=== PATIENT | female | born 1955 | race Caucasian/White ===

== ENCOUNTER 2024-05-19 17:20 | Inpatient (IN) | payer MEDICARE, OTHER, MEDICAID ==
[~2024-05-19] VITALS: Ht 167.6 cm; Wt 92.3 kg
[2024-05-19] MEDS: ACETAMINOPHEN 325MG TABLET PO STA (17:42)
[2024-05-19] MEDS: SODIUM CHLORIDE 0.9% 1,000 ML IV ONE (17:45)
[2024-05-19 18:37] LABS: BASOPHILS % 0.2 % (0.0-2.0); EOSINOPHILS % 4.5 % (0.0-5.0); HEMOGLOBIN. 10.6 g/dL (12.0-16.0); LYMPHOCYTES % 28.9 % (20.0-50.0); MEAN CORPUSCULAR HEMOGLOBIN 30.4 pg (28.0-32.0); MEAN CORPUSCULAR HGB CONC 33.1 g/dL (31.0-37.0); MEAN CORPUSCULAR VOLUME 91.8 fL (81.0-99.0); MEAN PLATELET VOLUME 8.9 fl (7.4-10.4); MONOCYTES % 7.7 % (2.0-8.0); NEUTROPHILS % 58.7 % (40.0-76.0); PLATELET 231 x1000/uL (130-400); RED BLOOD CELL COUNT 3.49 mill/uL (4.2-5.4); RED CELL DISTRIBUTION WIDTH 14.5 % (11.6-14.6); WHITE BLOOD COUNT 7.3 x1000/uL (4.5-11.0)
[2024-05-19 18:42] LABS: CHLORIDE 111 mEq/L (98-107); POTASSIUM 4.3 mEq/L (3.5-5.1); SODIUM 144 mEq/L (136-145)
[2024-05-19 18:43] LABS: CALCIUM 8.5 mg/dL (8.7-10.4); CARBON DIOXIDE 28 mEq/L (21-32)
[2024-05-19 18:47] LABS: INR 0.9; PROTHROMBIN TIME 10.6 sec (9.6-11.0)
[2024-05-19 18:48] LABS: CREATININE 2.3 mg/dL (0.6-1.0); GLUCOSE 91 mg/dL (70-105); UREA NITROGEN BLOOD 31 mg/dL (9-23)
[2024-05-19 18:51] LABS: TROPONIN I HIGH SENSITIVITY 46 ng/L (3.0-34)
[2024-05-19] MEDS ORDERED: HYDRALAZINE 20MG/ML VIAL IV PRN (20:45)
[2024-05-19] MEDS ORDERED: DOCUSATE SODIUM 100MG CAPSULE PO PRN (21:15)
[2024-05-19] MEDS ORDERED: NALOXONE HCL 0.4MG/ML VIAL IV PRN (21:15)
[2024-05-19] MEDS ORDERED: GUAIFENESIN 200MG/10ML SUGAR FREE UDC PO PRN (21:15)
[2024-05-19] MEDS ORDERED: MAGNESIUM/ALUMINUM HYDROXIDE/SIMETHICONE 30ML UDC PO PRN (21:15)
[2024-05-19] MEDS: SODIUM CHLORIDE 0.45% 1,000 ML IV SCH (21:45)
[2024-05-20] VITALS: BP 162/77; PULSE 60; RESP 18; TEMP 36.6696; O2SAT 98
[2024-05-20 01:16] VITALS: BP 162/77; PULSE 84; RESP 18; TEMP 36.696
[2024-05-20 01:17] LABS: CREATINE KINASE MB FRACTION 1.1 ng/mL (0.5-3.6)
[2024-05-20 04:00] VITALS: BP 154/80; PULSE 69; TEMP 36.114; O2SAT 95
[2024-05-20 06:13] LABS: CHLORIDE 115 mEq/L (98-107); POTASSIUM 4.4 mEq/L (3.5-5.1); SODIUM 145 mEq/L (136-145)
[2024-05-20 06:14] LABS: CALCIUM 8.1 mg/dL (8.7-10.4); CARBON DIOXIDE 25 mEq/L (21-32)
[2024-05-20 06:18] LABS: CREATINE KINASE MB FRACTION 0.5 ng/mL (0.5-3.6); IRON 43 ug/dL (50-170)
[2024-05-20 06:19] LABS: CREATININE 2.2 mg/dL (0.6-1.0); GLUCOSE 114 mg/dL (70-105); UREA NITROGEN BLOOD 29 mg/dL (9-23)
[2024-05-20 06:21] LABS: CREATINE KINASE 51 IU/L (34-145); PHOSPHORUS 3.8 mg/dL (2.5-4.9); TOTAL IRON BINDING CAPACITY 216 ug/dl (250-425)
[2024-05-20 06:23] LABS: FOLIC ACID (FOLATE) SERUM 10.64 ng/mL (>5.38); T4 FREE 0.83 ng/dL (0.89-1.76); VITAMIN B12 SERUM 401 pg/mL (211-911)
[2024-05-20 06:24] LABS: FERRITIN 33 ng/mL (10-291); THYROID STIMULATING HORMONE 1.55 uIU/mL (0.55-4.78)
[2024-05-20 06:47] LABS: BASOPHILS % 1.1 % (0.0-2.0); EOSINOPHILS % 5.5 % (0.0-5.0); HEMATOCRIT. 31.5 % (36.0-48.0); LYMPHOCYTES % 26.7 % (20.0-50.0); MEAN CORPUSCULAR HEMOGLOBIN 29.1 pg (28.0-32.0); MEAN CORPUSCULAR HGB CONC 31.7 g/dL (31.0-37.0); MEAN CORPUSCULAR VOLUME 91.7 fL (81.0-99.0); MONOCYTES % 6.2 % (2.0-8.0); NEUTROPHILS % 60.5 % (40.0-76.0); PLATELET 209 x1000/uL (130-400); RED BLOOD CELL COUNT 3.44 mill/uL (4.2-5.4); RED CELL DISTRIBUTION WIDTH 14.1 % (11.6-14.6); WHITE BLOOD COUNT 6.1 x1000/uL (4.5-11.0)
[2024-05-20 07:01] LABS: TROPONIN I HIGH SENSITIVITY 47 ng/L (3.0-34)
[2024-05-20 08:00] VITALS: BP 160/80; PULSE 70; RESP 18; TEMP 36.28068; O2SAT 97
[2024-05-20] MEDS: LEVETIRACETAM 500MG TABLET PO SCH (08:47)
[2024-05-20] MEDS: ENOXAPARIN 30MG/0.3ML SYR SUBCUT SCH (08:48)
[2024-05-20] MEDS: PANTOPRAZOLE 40MG DR TABLET PO SCH (08:48)
[2024-05-20] MEDS: HYDROCODONE/ACETAMINOPHEN 5/325MG TABLET PO PRN (09:50)
[2024-05-20] MEDS ORDERED: LIDOCAINE HCL 1% 10 MG/ML 10ML VIAL ONE (12:01)
[2024-05-20 16:00] VITALS: BP 138/70; PULSE 61; RESP 18; TEMP 36.44736; O2SAT 97
[2024-05-20] MEDS: ENOXAPARIN 60MG/0.6ML SYR SUBCUT NR (16:12)
[2024-05-20] MEDS: ASPIRIN 81MG TABLET PO SCH (16:14)
[2024-05-20 18:32] LABS: CREATINE KINASE MB FRACTION < 0.5 ng/mL (0.5-3.6)
[2024-05-20 18:33] LABS: CREATINE KINASE 45 IU/L (34-145)
[2024-05-20 18:58] LABS: TROPONIN I HIGH SENSITIVITY 49 ng/L (3.0-34)
[2024-05-20 20:59] VITALS: BP 143/74; PULSE 59; RESP 18; TEMP 36.61404; O2SAT 98
[2024-05-20] MEDS: ATORVASTATIN CALCIUM 40MG TABLET PO SCH (21:06)
[2024-05-21] VITALS: BP 140/80; RESP 19; TEMP 36.6696; O2SAT 98
[2024-05-21 03:40] VITALS: BP 146/88; PULSE 60; RESP 18; TEMP 37.00296; O2SAT 95
[2024-05-21 06:46] LABS: POTASSIUM 4.1 mEq/L (3.5-5.1)
[2024-05-21 06:48] LABS: CALCIUM 8.4 mg/dL (8.7-10.4)
[2024-05-21 06:52] LABS: CREATININE 2.1 mg/dL (0.6-1.0)
[2024-05-21] MEDS: PANTOPRAZOLE 40MG DR TABLET PO SCH (06:58)
[2024-05-21 07:16] LABS: HEMATOCRIT 30.7 % (36.0-48.0); HEMOGLOBIN 9.9 g/dL (12.0-16.0); MEAN CORPUSCULAR HEMOGLOBIN 29.6 pg (28.0-32.0); MEAN CORPUSCULAR HGB CONC 32.3 g/dL (31.0-37.0); MEAN CORPUSCULAR VOLUME 91.8 fL (81.0-99.0); PLATELET 197 x1000/uL (130-400); RED BLOOD CELL COUNT 3.34 mill/uL (4.2-5.4); RED CELL DISTRIBUTION WIDTH 14.5 % (11.6-14.6); WHITE BLOOD COUNT 6.1 x1000/uL (4.5-11.0)
[2024-05-21 08:00] VITALS: BP 176/79; PULSE 52; RESP 18; TEMP 35.8362; O2SAT 97
[2024-05-21] MEDS: CLONIDINE 0.2MG TABLET PO PRN (08:23)
[2024-05-21] MEDS: ONDANSETRON HCL 4MG/2ML INJ IV PRN (08:24)
[2024-05-21] MEDS: ENOXAPARIN 80MG/0.8ML SYR SUBCUT SCH (08:24)
[2024-05-21] MEDS: METOCLOPRAMIDE HCL 10MG/2ML VIAL IV NR (10:43)
[2024-05-21 12:00] VITALS: BP 141/68; PULSE 45; RESP 18; TEMP 36.05844; O2SAT 97
[2024-05-21 13:05] LABS: TROPONIN I HIGH SENSITIVITY 48 ng/L (3.0-34)
[2024-05-21 16:00] VITALS: BP 140/62; PULSE 48; RESP 20; TEMP 36.44736; O2SAT 98
[2024-05-21 20:00] VITALS: BP 149/79; PULSE 59; RESP 19; TEMP 36.50292; O2SAT 97
[2024-05-22] VITALS: BP 158/74; PULSE 67; RESP 19; TEMP 36.61404; O2SAT 100
[2024-05-22 04:00] VITALS: BP 158/74; PULSE 65; RESP 19; TEMP 36.3918; O2SAT 98
[2024-05-22] MEDS: PANTOPRAZOLE 40MG DR TABLET PO SCH (06:31)
[2024-05-22] MEDS ORDERED: OMEPRAZOLE 20MG CAPSULE EXTENDED RELEASE PO SCH (07:10)
[2024-05-22 07:45] LABS: CALCIUM 9.2 mg/dL (8.7-10.4); CARBON DIOXIDE 26 mEq/L (21-32); CHLORIDE 111 mEq/L (98-107); POTASSIUM 4.2 mEq/L (3.5-5.1); SODIUM 143 mEq/L (136-145)
[2024-05-22 07:51] LABS: CREATININE 1.9 mg/dL (0.6-1.0); GLUCOSE 91 mg/dL (70-105)
[2024-05-22 07:52] LABS: UREA NITROGEN BLOOD 26 mg/dL (9-23)
[2024-05-22 07:53] LABS: PHOSPHORUS 3.8 mg/dL (2.5-4.9)
[2024-05-22 08:00] VITALS: BP 120/77; PULSE 68; RESP 19; TEMP 36.55848; O2SAT 99
[2024-05-22] MEDS: METOCLOPRAMIDE HCL 10MG/2ML VIAL IV SCH (08:30)
[2024-05-22 09:00] LABS: BASOPHILS % 1.3 % (0.0-2.0); EOSINOPHILS % 4.2 % (0.0-5.0); HEMATOCRIT. 33.9 % (36.0-48.0); HEMOGLOBIN. 11.1 g/dL (12.0-16.0); LYMPHOCYTES % 26.1 % (20.0-50.0); MEAN CORPUSCULAR HEMOGLOBIN 29.9 pg (28.0-32.0); MEAN CORPUSCULAR HGB CONC 32.8 g/dL (31.0-37.0); MONOCYTES % 6.1 % (2.0-8.0); NEUTROPHILS % 62.3 % (40.0-76.0); PLATELET 216 x1000/uL (130-400); RED BLOOD CELL COUNT 3.72 mill/uL (4.2-5.4); WHITE BLOOD COUNT 6.3 x1000/uL (4.5-11.0)
[2024-05-22 10:06] LABS: TROPONIN I HIGH SENSITIVITY 56 ng/L (3.0-34)
[2024-05-22 12:00] VITALS: BP 96/78; PULSE 68; RESP 19; TEMP 36.55848; O2SAT 99
[2024-05-22 16:00] VITALS: BP 101/79; PULSE 88; RESP 18; TEMP 36.22512; O2SAT 98
[2024-05-22] MEDS: LEVOTHYROXINE SODIUM 75MCG TABLET PO SCH (16:00)
[2024-05-22] MEDS: GABAPENTIN 300MG CAPSULE PO SCH (17:50)
[2024-05-22] MEDS: CITALOPRAM HYDROBROMIDE 10MG TABLET PO SCH (17:51)
[2024-05-22 18:47] LABS: CLARITY URINE CLOUDY (CLEAR); COLOR URINE YELLOW (YELLOW); GLUCOSE URINE NEGATIVE (NEGATIVE); KETONES URINE NEGATIVE (NEGATIVE); LEUKOCYTE ESTERASE URINE 1+ (NEGATIVE); NITRITE URINE POSITIVE (NEGATIVE); OCCULT BLOOD URINE TRACE (NEGATIVE); PH URINE 7.5 (4.5-8.0); PROTEIN URINE 3+ (NEGATIVE); UROBILINOGEN URINE 0.2 E.U./dL (0.2-1.0)
[2024-05-22 19:28] LABS: BACTERIA URINE 4+; RBC URINE 0-2 /hpf (0-2); SQUAMOUS EPITHELIAL CELL URINE 1+ /lpf (RARE/1+)
[2024-05-22 20:00] VITALS: BP 162/72; PULSE 89; RESP 18; TEMP 36.33624; O2SAT 97
[2024-05-22] MEDS: ONDANSETRON HCL 4MG TABLET PO PRN (20:55)
[2024-05-23] VITALS: BP 125/54; PULSE 65; RESP 28; TEMP 36.3918; O2SAT 95
[2024-05-23 04:00] VITALS: BP 147/64; PULSE 61; RESP 19; TEMP 36.3918; O2SAT 98
[2024-05-23 08:00] VITALS: BP 130/92; PULSE 60; RESP 18; TEMP 36.61404; O2SAT 97
[2024-05-23] MEDS: CEFTRIAXONE 1GM/50ML 50 ML IV NR (09:14)
[2024-05-23 09:30] LABS: CHLORIDE 111 mEq/L (98-107); POTASSIUM 4.4 mEq/L (3.5-5.1); SODIUM 142 mEq/L (136-145)
[2024-05-23 09:31] LABS: CALCIUM 8.5 mg/dL (8.7-10.4); CARBON DIOXIDE 26 mEq/L (21-32)
[2024-05-23 09:36] LABS: GLUCOSE 95 mg/dL (70-105); UREA NITROGEN BLOOD 26 mg/dL (9-23)
[2024-05-23 09:38] LABS: PHOSPHORUS 4.3 mg/dL (2.5-4.9)
[2024-05-23 10:20] LABS: BASOPHILS % 1.4 % (0.0-2.0); EOSINOPHILS % 4.6 % (0.0-5.0); HEMATOCRIT. 33.6 % (36.0-48.0); HEMOGLOBIN. 10.9 g/dL (12.0-16.0); LYMPHOCYTES % 30.6 % (20.0-50.0); MEAN CORPUSCULAR HEMOGLOBIN 29.4 pg (28.0-32.0); MEAN CORPUSCULAR HGB CONC 32.3 g/dL (31.0-37.0); MEAN CORPUSCULAR VOLUME 91.3 fL (81.0-99.0); MEAN PLATELET VOLUME 9.7 fl (7.4-10.4); MONOCYTES % 9.4 % (2.0-8.0); PLATELET 225 x1000/uL (130-400); RED BLOOD CELL COUNT 3.69 mill/uL (4.2-5.4); RED CELL DISTRIBUTION WIDTH 14.5 % (11.6-14.6); WHITE BLOOD COUNT 5.2 x1000/uL (4.5-11.0)
[2024-05-23 12:00] VITALS: BP 121/52; PULSE 69; RESP 18; TEMP 36.72516; O2SAT 99
[2024-05-23] MEDS: METOPROLOL TARTRATE 25MG TABLET PO SCH ×2 (14:18→21:07)
[2024-05-23] MEDS ORDERED: APIX5TAB PO (15:31)
[2024-05-23] MEDS ORDERED: LIP40 PO (15:31)
[2024-05-23] MEDS ORDERED: CITA10TA16 PO (15:31)
[2024-05-23] MEDS ORDERED: METO25TA6 PO (15:31)
[2024-05-23] MEDS ORDERED: ASPI-1160 PO (15:31)
[2024-05-23] MEDS ORDERED: LOSA25TA26 MT (15:31)
[2024-05-23] MEDS ORDERED: GABA-532 PO (15:31)
[2024-05-23] MEDS ORDERED: AMOX1TAB15 MT (15:31)
[2024-05-23] MEDS ORDERED: KEPP500 PO (15:31)
[2024-05-23] MEDS ORDERED: LEVO75TA7 PO (15:31)
[2024-05-23] MEDS ORDERED: DOCU-150 PO (15:31)
[2024-05-23] MEDS ORDERED: PANT40TA51 PO (15:31)
[2024-05-23 16:00] VITALS: BP 155/70; PULSE 81; RESP 18; TEMP 36.50292; O2SAT 98
[2024-05-23 20:03] VITALS: BP 119/65; PULSE 72; RESP 18; TEMP 36.3918; O2SAT 96
[2024-05-23] MEDS: ACETAMINOPHEN 325MG TABLET PO PRN (21:37)
[2024-05-24] VITALS: BP 125/53; PULSE 60; RESP 18; TEMP 35.61396; O2SAT 96
[2024-05-24 04:05] VITALS: BP 124/73; PULSE 58; RESP 18; TEMP 36.3918; O2SAT 99
[2024-05-24 07:23] LABS: CALCIUM 7.9 mg/dL (8.7-10.4); CARBON DIOXIDE 27 mEq/L (21-32); CHLORIDE 108 mEq/L (98-107); POTASSIUM 4.3 mEq/L (3.5-5.1); SODIUM 139 mEq/L (136-145)
[2024-05-24 07:28] LABS: CREATININE 2.6 mg/dL (0.6-1.0); GLUCOSE 86 mg/dL (70-105)
[2024-05-24 07:29] LABS: UREA NITROGEN BLOOD 32 mg/dL (9-23)
[2024-05-24 07:32] LABS: BASOPHILS % 0.6 % (0.0-2.0); EOSINOPHILS % 3.7 % (0.0-5.0); HEMOGLOBIN. 10.8 g/dL (12.0-16.0); LYMPHOCYTES % 11.9 % (20.0-50.0); MEAN CORPUSCULAR HEMOGLOBIN 29.1 pg (28.0-32.0); MEAN CORPUSCULAR HGB CONC 31.8 g/dL (31.0-37.0); MEAN CORPUSCULAR VOLUME 91.5 fL (81.0-99.0); MEAN PLATELET VOLUME 9.6 fl (7.4-10.4); MONOCYTES % 6.5 % (2.0-8.0); NEUTROPHILS % 77.3 % (40.0-76.0); PLATELET 204 x1000/uL (130-400); RED BLOOD CELL COUNT 3.71 mill/uL (4.2-5.4); RED CELL DISTRIBUTION WIDTH 14.7 % (11.6-14.6); WHITE BLOOD COUNT 7.4 x1000/uL (4.5-11.0)
[2024-05-24 08:00] VITALS: BP 129/64; PULSE 58; RESP 18; TEMP 36.33624; O2SAT 95
[2024-05-24 12:00] VITALS: BP 136/55; PULSE 56; RESP 16; TEMP 36.72516; O2SAT 96
[2024-05-24 15:04] VITALS: BP 136/55; PULSE 60; TEMP 98.1; O2SAT 96
[2024-05-24 16:00] VITALS: BP 132/65; PULSE 57; RESP 20; TEMP 36.61404; O2SAT 94
== END 2024-05-24 18:43 | DRG 280 ==
LOC: ER 17:20 → 5WST 19:23 → 8WST 23:37
PROVIDERS: ADMIT Internal Medicine; ATTEND Internal Medicine
PROC: 02HV33Z Insertion of Infusion Device into Superior Vena Cava, Percutaneous Approach (ICD-10-PCS; principal; 2024-05-20)
PROC: B518YZA Fluoroscopy of Superior Vena Cava using Other Contrast, Guidance (ICD-10-PCS; 2024-05-20)
PROC: B548ZZA Ultrasonography of Superior Vena Cava, Guidance (ICD-10-PCS; 2024-05-20)
DX: I24.89 Other forms of acute ischemic heart disease (principal); N17.0 Acute kidney failure with tubular necrosis; I21.A1 Myocardial infarction type 2; I82.411 Acute embolism and thrombosis of right femoral vein; I47.20 Ventricular tachycardia, unspecified; N39.0 Urinary tract infection, site not specified; I50.22 Chronic systolic (congestive) heart failure; I13.0 Hypertensive heart and chronic kidney disease with heart failure and stage 1 through stage 4 chronic kidney disease, or unspecified chronic kidney disease; R54 Age-related physical debility; M25.572 Pain in left ankle and joints of left foot; E03.9 Hypothyroidism, unspecified; G40.909 Epilepsy, unspecified, not intractable, without status epilepticus; N18.9 Chronic kidney disease, unspecified; K57.30 Diverticulosis of large intestine without perforation or abscess without bleeding; N20.0 Calculus of kidney; I49.3 Ventricular premature depolarization; Z79.01 Long term (current) use of anticoagulants; Z87.11 Personal history of peptic ulcer disease; W06.XXXA Fall from bed, initial encounter; Y93.89 Activity, other specified; Y92.89 Other specified places as the place of occurrence of the external cause; Y99.8 Other external cause status
CPT/HCPCS: 36415; 36573; 71045; 73110; 73503; 73610; 74176; 80048; 80320; 81003; 82550; 82553; 82607; 82728; 82746; 82962; 83540; 83550; 83605; 83735; 83880; 84100; 84145; 84439; 84443; 84484; 85025; 85027; 85044; 85379; 86850; 86900; 87077; 87186; 93005; 93306; 93970; 99285; C1725; C1769; J0696; J1650; J2405; J2765; J3490; J7030; Q0162; G0480

== ENCOUNTER 2024-07-04 23:10 | Emergency (ER) | payer MEDICARE, OTHER, MEDICAID ==
[~2024-07-04] VITALS: Ht 170.2 cm; Wt 77.0 kg
[~2024-07-04 23:10] MED LIST: AMOX1TAB15 MT; APIX5TAB PO; ASPI-1160 PO; CITA10TA16 PO; DOCU-422 PO; GABA-1180 PO; KEPP500 PO; LEVO75TA7 PO; LIP40 PO; LOSA25TA26 MT; METO25TA6 PO; PANT40TA51 PO
[2024-07-04 23:21] VITALS: O2SAT 97
[2024-07-05] MEDS: HYDROCODONE/ACETAMINOPHEN 5/325MG TABLET PO ONE (01:55)
[2024-07-05 02:23] VITALS: BP 136/96; PULSE 82; RESP 14; TEMP 36.89184; O2SAT 97
== END 2024-07-05 02:27 ==
LOC: ER 23:10
DX: M79.10 Myalgia, unspecified site (principal); M79.604 Pain in right leg; M79.605 Pain in left leg; I10 Essential (primary) hypertension; E03.9 Hypothyroidism, unspecified; Z79.899 Other long term (current) drug therapy; Z79.82 Long term (current) use of aspirin; Z79.01 Long term (current) use of anticoagulants; Z76.0 Encounter for issue of repeat prescription
CPT/HCPCS: 99283

== ENCOUNTER 2024-11-29 00:58 | Emergency (ER) | payer MEDICARE, MEDICAID ==
[~2024-11-29] VITALS: Ht 170.2 cm; Wt 77.0 kg
[2024-11-29 01:00] VITALS: PULSE 0; RESP 0; O2SAT 0
== END 2024-11-29 02:40 ==
LOC: ER 01:11
DX: I46.9 Cardiac arrest, cause unspecified (principal); I25.2 Old myocardial infarction; I10 Essential (primary) hypertension; E03.9 Hypothyroidism, unspecified; F32.A Depression, unspecified; Z79.82 Long term (current) use of aspirin; Z86.59 Personal history of other mental and behavioral disorders; Z79.899 Other long term (current) drug therapy
CPT/HCPCS: 31500; 92950; 99285